=== PATIENT | male | born 1965 | race Hispanic/Latino ===

== ENCOUNTER 2022-08-09 10:22 | Emergency (ER) | payer OTHER ==
[~2022-08-09] VITALS: Ht 157.5 cm; Wt 70.0 kg
[2022-08-09] MEDS ORDERED: OFLOXACIN0.3 % OD ×3 (11:27→19:59)
[2022-08-09 11:54] VITALS: BP 158/91
== END 2022-08-09 11:54 | disposition home or self-care (01) | DRG 125 ==
LOC: EDBD 10:22 → ED 10:22
DX: S05.01XA Injury of conjunctiva and corneal abrasion without foreign body, right eye, initial encounter (principal); W22.8XXA Striking against or struck by other objects, initial encounter

== ENCOUNTER 2022-10-23 08:39 | Emergency (ER) | payer OTHER ==
[~2022-10-23] VITALS: Ht 157.5 cm; Wt 66.0 kg
[2022-10-23] VITALS (12 sets, daily range): BP systolic 122–156; BP diastolic 71–87
[~2022-10-23 08:39] MED LIST: OFLOXACIN0.3 % OD
[2022-10-23] MEDS ORDERED: OFLOXACIN0.3 % OD (09:06)
== END 2022-10-23 11:38 | disposition home or self-care (01) | DRG 125 ==
LOC: ED 08:39
DX: H10.31 Unspecified acute conjunctivitis, right eye (principal); R51.9 Headache, unspecified